=== PATIENT | female | born 1980 | race American Indian/Alaskan Native ===

== ENCOUNTER 2021-06-11 12:01 | Emergency (ER) | payer MEDICAID ==
[2021-06-11 13:08] VITALS: BP 111/69
[2021-06-11] MEDS ORDERED: ACETAMINOPHEN 500 MG TAB PO STA (13:08)
[2021-06-11] MEDS ORDERED: IBUPROFEN 800 MG TAB PO STA (13:08)
--- NOTE | 2021-06-11 13:09 | Event Note ---
ED Screening Note Date of service: 06/11/21 ED Screening Note: Patient complains of left ankle and foot pain after a twist injury Significant tenderness to palpation on exam with mild swelling This initial assessment/diagnostic orders/clinical plan/treatment(s) is/are subject to change based on patients health status, clinical progression and re- assessment by fellow clinical providers in the ED. Further treatment and workup at subsequent clinical providers discretion. Patient/guardian urged not to elope from the ED as their condition may be serious if not clinically assessed and managed. Initial orders include: X-ray Tylenol and ibuprofen
--- NOTE | 2021-06-11 13:50 | XRay Report ---
LEFT ANKLE 3 VIEW(S) INDICATION / CLINICAL INFORMATION: injury COMPARISON: None available. FINDINGS: BONES / JOINT(S): No acute fracture or subluxation. No significant arthritis. SOFT TISSUES: No significant abnormality. ADDITIONAL FINDINGS: There is calcific atherosclerosis, given patient's age correlate for diabetes. LEFT FOOT 3 VIEW(S) INDICATION / CLINICAL INFORMATION: injury COMPARISON: None available. FINDINGS: BONES / JOINT(S): There is a fracture through the mid to distal diaphysis of the fourth metatarsal. N o significant arthritis. SOFT TISSUES: No significant abnormality. ADDITIONAL FINDINGS: There is calcific atherosclerosis, given patient's age correlate for diabetes. Signer Name: Errol Carvalho DO Signed: 06/11/2021 1:46 PM Workstation Name: [id number]
[2021-06-11] MEDS ORDERED: oxyCODONE /ACETAMINOPHEN 5-325MG TAB PO ONE (14:34)
--- NOTE | 2021-06-11 15:09 | Emergency Department Report ---
ED Lower Extremity HPI - General Chief Complaint: Extremity Injury, Lower Stated Complaint: INJURED FOOT DIABETIC Time Seen by Provider: 06/11/21 13:08 Source: patient Mode of arrival: Ambulatory Limitations: No Limitations - History of Present Illness Initial Comments: 40 year old female with past medical hx of diabetes, gastroparesis and hypertension presents to the ER today with complaints of left foot injury. Patient states that yesterday her stomach was bothering her due to her gastroparesis and one of the things that tend to help with when she jumps up and down. She states that there is an uneven area to the floors in her house and while she was jumping yesterday she twisted her left foot. She states that since then she has been having increasing pain mainly to the dorsal aspect of the left foot with associated swelling. She states that the pain is worse with ambulation and movement of the foot. She denies any prior injury to that foot. She reports no other symptoms at this time. MD Complaint: foot injury -: Sudden - Related Data Previous Rx's Medication Instructions Recorded Last Taken Type oxyCODONE /ACETAMINOPHEN [Percocet 1 tab PO Q6HR PRN #12 tablet 06/11/21 Unknown Rx 5/325] Allergies Allergy/AdvReac Type Severity Reaction Status Date / Time No Known Allergies Allergy Unverified 06/11/21 13:04 ED Review of Systems ROS: Stated complaint: INJURED FOOT DIABETIC Other details as noted in HPI Comment: All other systems reviewed and negative Constitutional: denies: chills, fever Eyes: denies: eye pain, eye discharge, vision change ENT: denies: ear pain, throat pain, dental pain, hearing loss, epistaxis, congestion Respiratory: denies: cough, shortness of breath, SOB with exertion, SOB at rest, wheezing Cardiovascular: denies: chest pain, palpitations, dyspnea on exertion, edema, syncope, paroxysmal nocturnal dyspnea Gastrointestinal: denies: abdominal pain, nausea, vomiting, diarrhea, constipation, hematemesis, hematochezia Musculoskeletal: joint swelling, arthralgia Skin: denies: rash, lesions, change in color, change in hair/nails, pruritus Neurological: denies: headache, weakness, numbness, paresthesias, confusion Psychiatric: denies: anxiety, depression, auditory hallucinations, visual hallucinations, homicidal thoughts, suicidal thoughts Hematological/Lymphatic: denies: easy bleeding, easy bruising ED Past Medical Hx - Past Medical History Previous Medical History?: Yes Hx Hypertension: Yes Hx Diabetes: Yes - Surgical History Past Surgical History?: Yes Additional Surgical History: TL - Medications Home Medications: Home Medications Medication Instructions Recorded Confirmed Last Taken Type oxyCODONE /ACETAMINOPHEN [Percocet 1 tab PO Q6HR PRN #12 tablet 06/11/21 Unknown Rx 5/325] ED Physical Exam - General Limitations: No Limitations General appearance: alert, in no apparent distress - Head Head exam: Present: atraumatic, normocephalic, normal inspection - Eye Eye exam: Present: normal appearance, PERRL, EOMI Pupils: Present: normal accommodation - ENT ENT exam: Present: normal exam, mucous membranes moist, TM's normal bilaterally - Neck Neck exam: Present: normal inspection, full ROM - Respiratory Respiratory exam: Present: normal lung sounds bilaterally. Absent: respiratory distress - Cardiovascular Cardiovascular Exam: Present: regular rate, normal rhythm, normal heart sounds - GI/Abdominal GI/Abdominal exam: Present: soft. Absent: distended, tenderness, guarding, rebound - Expanded Lower Extremity Exam Left Ankle exam: Present: normal inspection, full ROM. Absent: tenderness, swelling, abrasion, laceration, ecchymosis, deformity, crepidus, dislocation, erythema Foot/Toe exam: Present: tenderness (Severe tenderness to palpation to the dorsal aspect of the left foot especially over the fourth metatarsal ), swelling (mild dorsal aspect of left foot ). Absent: full ROM (ROM of foot limited due to pain ), abrasion, laceration, ecchymosis, deformity, crepidus, dislocation, erythema, amputation, puncture wound, foreign body, calcaneal tenderness, tenderness at base of 5th metatarsal Neuro vascular tendon exam: Present: no vascular compromise. Absent: pulse deficit, motor deficit, sensory deficit, tendon deficit Gait: Positive: observed and limited by pain - Neurological Exam Neurological exam: Present: alert, oriented X3, CN II-XII intact - Psychiatric Psychiatric exam: Present: normal affect, normal mood ED Course Vital Signs 06/11/21 06/11/21 13:04 15:06 Temperature 97.7 F Pulse Rate 85 Respiratory 18 16 Rate Blood Pressure 111/69 O2 Sat by Pulse 100 Oximetry ED Lower Extremity MDM - Radiology Data Radiology results: report reviewed Patient: RACHELLE KAHN MR#: [id number] : 1980 Acct:[id number] Age/Sex: 40 / F ADM Date: 06/11/21 Loc: ED Attending Dr: Ordering Physician: LENA CLINE MD Date of Service: 06/11/21 Procedure(s): XR foot 3+V LT Accession Number(s): [id number] cc: LENA CLINE MD Fluoro Time In Minutes: LEFT ANKLE 3 VIEW(S) INDICATION / CLINICAL INFORMATION: injury COMPARISON: None available. FINDINGS: BONES / JOINT(S): No acute fracture or subluxation. No significant arthritis. SOFT TISSUES: No significant abnormality. ADDITIONAL FINDINGS: There is calcific atherosclerosis, given patient's age correlate for diabetes. LEFT FOOT 3 VIEW(S) INDICATION / CLINICAL INFORMATION: injury COMPARISON: None available. FINDINGS: BONES / JOINT(S): There is a fracture through the mid to distal diaphysis of the fourth metatarsal. No significant arthritis. SOFT TISSUES: No significant abnormality. ADDITIONAL FINDINGS: There is calcific atherosclerosis, given patient's age correlate for diabetes. Signer Name: Errol Ward DO Signed: 06/11/2021 1:46 PM Workstation Name: [id number] Transcribed By: GIRISH Dictated By: ERROL WARD DO Electronically Authenticated By: ERROL WARD DO Signed Date/Time: 06/11/21 1346 DD/ 1344 TD/TT: - Medical Decision Making X-ray of the left foot shows that patient has a fourth metatarsal nondisplaced fracture. Discussed x-ray results with patient She was placed in a short posterior splint and given crutches Patient neurovascularly intact post splint placement Patient informed that she will need to follow-up with either the grab hooker or senior education specialist this week or next week for her fracture. Patient expressed understanding and agree with plan. Patient was stable at time of discharge. Critical care attestation.: If time is entered above; I have spent that time in minutes in the direct care of this critically ill patient, excluding procedure time. ED Disposition Clinical Impression: Fracture of fourth metatarsal bone Disposition: - TO HOME OR SELFCARE Is pt being admited?: No Does the pt Need Aspirin: No Condition: Stable Instructions: Cast or Splint Care, Adult, [id number], Metatarsal Fracture Additional Instructions: Do not remove the splint or get it wet. Take the Percocet as prescribed to help with pain. Elevate your leg as often as possible. Follow-up with the or thopedic specialist and/or the grab hooker listed on your discharge instructions. Return to the ER if your symptoms changes or worsens in any way. Prescriptions: oxyCODONE /ACETAMINOPHEN [Percocet 5/325] 1 tab PO Q6HR PRN #12 tablet PRN Reason: Pain Referrals: ROSEMARY DANIELLE DPM [Staff Physician] - 3-5 Days GONZALES NAVA MD [Staff Physician] - 3-5 Days Time of Disposition: 15:19
== END 2021-06-11 17:00 | disposition home or self-care (01) ==
LOC: ED 12:01
DX: S92.342A Displaced fracture of fourth metatarsal bone, left foot, initial encounter for closed fracture (principal); I10 Essential (primary) hypertension; E11.9 Type 2 diabetes mellitus without complications; W01.0XXA Fall on same level from slipping, tripping and stumbling without subsequent striking against object, initial encounter; Y93.89 Activity, other specified; Y92.89 Other specified places as the place of occurrence of the external cause; Y99.8 Other external cause status
CPT/HCPCS: 99283